=== PATIENT | female | born 1985 | race Caucasian/White ===

== ENCOUNTER 2022-06-29 08:47 | Emergency (ER) | payer SELFPAY ==
[~2022-06-29] VITALS: Ht 165.1 cm; Wt 73.0 kg
[2022-06-29 09:00] VITALS: BP 133/87
[2022-06-29] MEDS ORDERED: ACETAMINOPHEN 325MG TABLET PO ONE (09:45)
== END 2022-06-29 12:04 | disposition home or self-care (01) ==
LOC: ER 08:47
DX: M54.2 Cervicalgia (principal); R51.9 Headache, unspecified; G89.11 Acute pain due to trauma; V49.49XA Driver injured in collision with other motor vehicles in traffic accident, initial encounter; Y93.89 Activity, other specified; Y92.014 Private driveway to single-family (private) house as the place of occurrence of the external cause
CPT/HCPCS: 81025; 99284